=== PATIENT | female | born 1955 | race Caucasian/White ===

== ENCOUNTER 2024-03-12 10:28 | Emergency (ER) | payer SELFPAY ==
[~2024-03-12] VITALS: Ht 160 cm; Wt 81.6 kg
[2024-03-12 11:17] VITALS: BP 143/80; PULSE 74; RESP 18; TEMP 98.1; O2SAT 99
[2024-03-12 11:48] VITALS: O2SAT 99
[2024-03-12] MEDS ORDERED: IBUP-1842 PO (13:01)
[2024-03-12] MEDS: ACETAMINOPHEN EXTRA STRENGTH 500 MG TAB PO ONE (13:02)
[2024-03-12] MEDS: KETOROLAC 30 MG/ML VIAL IM ONE (13:03)
[2024-03-12] MEDS ORDERED: ACET500T99 PO (13:03)
== END 2024-03-12 13:49 | disposition home or self-care (01) ==
LOC: MED 10:28
DX: M17.12 Unilateral primary osteoarthritis, left knee (principal); Z79.899 Other long term (current) drug therapy; Z88.0 Allergy status to penicillin
CPT/HCPCS: 73562; 96372; 99283; J1885